=== PATIENT | female | born 1995 | race Caucasian/White ===

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

== ENCOUNTER 2017-04-23 21:54 | Outpatient (CLI) | END 2017-04-24 03:05 | disposition home or self-care (01) ==

== ENCOUNTER 2017-05-01 16:08 | Outpatient (CLI) | END 2017-05-01 20:07 | disposition home or self-care (01) ==

== ENCOUNTER 2017-05-04 11:00 | Inpatient (IN) | END 2017-05-10 14:25 | disposition home or self-care (01) | DRG 765 ==